=== PATIENT | male | born 1975 | race Caucasian/White ===

== ENCOUNTER 2016-12-19 04:28 | Inpatient (IN) | payer OTHER ==
[2016-12-19] MEDS ORDERED: ONDANSETRON 4 MG/2 ML VIAL IVP ONE (04:43)
[2016-12-19] MEDS ORDERED: NS 1,000 ML IV ONE ×2 (04:43→05:14)
--- NOTE | 2016-12-19 04:44 | EDPHY ---
H & P Stated Complaint: N/V abdo pain X 12 hours Time Seen by Provider: 12/19/16 04:35 HPI/ROS: Chief Complaint: Abdominal pain, nausea and vomiting HPI: Patient began having centralized abdominal pain which has been crampy and intermittent in nature for the last 12 hours associated with nausea and vomiting. He is not able to keep anything down. No diarrhea. Has not had any bowel movements and feels he might be constipated. Does not have a history of the same. At worst pain is about a 7/10. There are no aggravating or alleviating factors. No fevers or chills. Has not have a history of the same. No surgeries in the past. ROS: 10 point Review of Systems is negative except as noted in the HPI. PMH: None Medications: None Allergies: No known drug allergies Social History: No smoking, occasional alcohol, no recreational drug use Family History: non-contributory Physical Exam: Gen: Awake, Alert, uncomfortable appearing HEENT: Nose: no rhinorrhea Eyes: PERRLA, EOMI Mouth: Moist mucosa Neck: Supple, no JVD Chest: nontender, lungs clear to auscultation Heart: S1, S2 normal, no murmur Abd: Soft, left-sided abdominal tenderness, no guarding Back: no CVA tenderness, no midline tenderness Ext: no edema, non-tender Skin: no rash Neuro: CN II-XII intact, Sensation grossly intact, Strength 5/5 in bilateral upper and lower extremities - Personal History Current Tetanus/Diphtheria Vaccine: Yes Current Tetanus Diphtheria and Acellular Pertussis (TDAP): Yes - Medical/Surgical History Hx Asthma: No Hx Chronic Respiratory Disease: No Hx Diabetes: No Hx Cardiac Disease: No Hx Renal Disease: No Hx Cirrhosis: No Hx Alcoholism: Yes Hx HIV/AIDS: No Hx Splenectomy or Spleen Trauma: No Other PMH: drinks "8 to 10 drinks per day". denies other - Social History Smoking Status: Never smoked Constitutional: Initial Vital Signs Temperature (C) 36.6 C 12/19/16 04:36 Heart Rate 84 12/19/16 04:36 Respiratory Rate 16 12/19/16 04:36 Blood Pressure 177/126 H 12/19/16 04:36 O2 Sat (%) 98 12/19/16 04:36 O2 Delivery Mode Room Air Allergies/Adverse Reactions: No Known Allergies Allergy (Unverified 12/19/16 04:35) Home Medications: Medication Instructions Recorded NK [No Known Home Meds] 02/21/14 Medical Decision Making - Diagnostics Imaging: CT scan abdomen pelvis interpreted by Dr. Mccauley. There is a high-grade small-bowel obstruction with the appearance of a possible internal hernia. ED Course/Re-evaluation: CT scan shows a high-grade small-bowel obstruction with a possible transient mental internal hernia. Will page General surgery is a select require surgical repair. Will place an NG tube. Discussed with Dr. Martinez. Will admit to his service for further care. - Data Points Laboratory Results: Laboratory Results 12/19/16 04:45 12/19/16 04:45 12/19/16 12/19/16 04:45 04:45 WBC 11.49 10^3/uL H 10^3/uL (3.80-9.50) RBC 4.70 10^6/uL 10^6/uL (4.40-6.38) Hgb 9.5 g/dL L g/dL (13.7-17.5) Hct 31.1 % L % (40.0-51.0) MCV 66.2 fL L fL (81.5-99.8) MCH 20.2 pg L pg (27.9-34.1) MCHC 30.5 g/dL L g/dL (32.4-36.7) RDW 18.1 % H % (11.5-15.2) Plt Count 330 10^3/uL 10^3/uL (150-400) MPV 9.9 fL fL (8.7-11.7) Neut % (Auto) 87.1 % H % (39.3-74.2) Lymph % (Auto) 8.5 % L % (15.0-45.0) [place] % (Auto) 3.7 % L % (4.5-13.0) Eos % (Auto) 0.0 % L % (0.6-7.6) Baso % (Auto) 0.3 % % (0.3-1.7) Nucleat RBC Rel Count 0.0 % % (0.0-0.2) Absolute Neuts (auto) 9.99 10^3/uL H 10^3/uL (1.70-6.50) Absolute Lymphs (auto) 0.98 10^3/uL L 10^3/uL (1.00-3.00) Absolute Monos (auto) 0.43 10^3/uL 10^3/uL (0.30-0.80) Absolute Eos (auto) 0.00 10^3/uL L 10^3/uL (0.03-0.40) Absolute Basos (auto) 0.04 10^3/uL 10^3/uL (0.02-0.10) Absolute Nucleated RBC 0.00 10^3/uL 10^3/uL (0-0.01) Immature Gran % 0.4 % % (0.0-1.1) Immature Gran # 0.05 10^3/uL 10^3/uL (0.00-0.10) Platelet Estimate ADEQUATE (ADEQ) Polychromasia 1+ H Hypochromasia 2+ H Microcytic Cells 1+ H Smear Review By Pending Sodium 133 mEq/L L mEq/L (134-144) Potassium 3.4 mEq/L L mEq/L (3.5-5.2) Chloride 94 mEq/L L mEq/L (97-110) Carbon Dioxide 20 mEq/l L mEq/l (22-31) Anion Gap 19 mEq/L H mEq/L (8-16) BUN 8 mg/dL mg/dL (7-23) Creatinine 0.7 mg/dL mg/dL (0.7-1.3) Estimated GFR > 60 Glucose 113 mg/dL H mg/dL (70-100) Calcium 9.6 mg/dL mg/dL (8.5-10.4) Total Bilirubin 1.0 mg/dL mg/dL (0.1-1.4) Conjugated Bilirubin 0.3 mg/dL mg/dL (0.0-0.5) Unconjugated Bilirubin 0.7 mg/dL mg/dL (0.0-1.1) AST 34 IU/L IU/L (17-59) ALT 30 IU/L IU/L (21-72) Alkaline Phosphatase 90 IU/L IU/L (38-126) Total Protein 8.4 g/dL H g/dL (6.3-8.2) Albumin 5.2 g/dL H g/dL (3.5-5.0) Lipase 47.0 IU/L IU/L (23-300) Medications Given: Discontinued Medications Hydromorphone HCl (Dilaudid) 0.5 mg IVP EDNOW ONE Stop: 12/19/16 05:10 Last Admin: 12/19/16 05:11 Dose: 0.5 mg Sodium Chloride (Ns) 1,000 mls @ 0 mls/hr IV ONCE ONE PRN Reason: Wide Open Stop: 12/19/16 04:44 Last Admin: 12/19/16 04:53 Dose: 1,000 mls Morphine Sulfate (Morphine) 4 mg IVP ONCE ONE Stop: 12/19/16 04:44 Last Admin: 12/19/16 04:53 Dose: 4 mg Ondansetron HCl (Zofran) 4 mg IVP EDNOW ONE Stop: 12/19/16 04:44 Last Admin: 12/19/16 04:53 Dose: 4 mg Departure - Departure Disposition: [facility] Inpatient Acute Clinical Impression: Small bowel obstruction Condition: Fair Referrals: NONE *PRIMARY CARE P,. [Primary Care Provider] - As per Instructions
[2016-12-19 04:56] LABS: % IMMATURE GRANULYOCYTES 0.4 % (0.0-1.1); ABSOLUTE IMMATURE GRANULOCYTES 0.05 10^3/uL (0.00-0.10); ADD DIFF? NO; ADD MORPH? YES; ADD SCAN? NO; ATYPICAL LYMPHOCYTE FLAG 0 (0-99); FRAGMENT RBC FLAG 20 (0-99); HEMATOCRIT 31.1 % (40.0-51.0); HEMOGLOBIN 9.5 g/dL (13.7-17.5); LEFT SHIFT FLG 0 (0-99); LIPEMIA HEMOLYSIS FLAG 80 (0-99); MEAN CELL HEMOGLOBIN 20.2 pg (27.9-34.1); MEAN CELL HEMOGLOBIN CONCENTR. 30.5 g/dL (32.4-36.7); MEAN PLATELET VOLUME 9.9 fL (8.7-11.7); PLATELET CLUMPS FLAG 0 (0-99); PLATELET COUNT 330 10^3/uL (150-400); RED CELL DISTRIBUTION WIDTH 18.1 % (11.5-15.2)
[2016-12-19 04:57] LABS: MEAN CELL VOLUME 66.2 fL (81.5-99.8)
[2016-12-19] MEDS ORDERED: HYDROmorphONE/DILAUDID 1 MG/ML SYR ONE (05:05)
[2016-12-19 05:09] LABS: ALANINE AMINOTRANSFERASE 30 IU/L (21-72); ALBUMIN 5.2 g/dL (3.5-5.0); ALKALINE PHOSPHATASE 90 IU/L (38-126); ANION GAP 19 mEq/L (8-16); ASPARTATE AMINOTRANSFERASE 34 IU/L (17-59); BILIRUBIN-CONJUGATED 0.3 mg/dL (0.0-0.5); BILIRUBIN-UNCONJUGATED 0.7 mg/dL (0.0-1.1); CALCIUM 9.6 mg/dL (8.5-10.4); CARBON DIOXIDE 20 mEq/l (22-31); CHLORIDE 94 mEq/L (97-110); CREATININE 0.7 mg/dL (0.7-1.3); GLOMERULAR FILTRATION RATE > 60; GLUCOSE 113 mg/dL (70-100); POTASSIUM 3.4 mEq/L (3.5-5.2); SODIUM 133 mEq/L (134-144); TOTAL PROTEIN 8.4 g/dL (6.3-8.2)
[2016-12-19] MEDS ORDERED: HYDROmorphONE/DILAUDID 1 MG/ML SYR IVP ONE (05:09)
[2016-12-19] MEDS ORDERED: IOPAMIDOL (ISOVUE-300) 100 ML BTL IV ONE (05:16)
[2016-12-19 05:25] LABS: HYPOCHROMIA 2+
[2016-12-19 05:26] LABS: MICROCYTES 1+; PLATELET ESTIMATE ADEQUATE (ADEQ); POLYCHROMASIA 1+
[2016-12-19] MEDS ORDERED: LIDOCAINE 2% JELLY 5 ML TUBE ONE (05:47)
[2016-12-19] MEDS ORDERED: LORazepam 2 MG/ML INJ IVP ONE (06:28)
[2016-12-19] MEDS ORDERED: LABETALOL HCL 50 MG/10 ML SYR IVP ONE (06:48)
[2016-12-19] MEDS ORDERED: LABETALOL HCL 5 MG/ML 20 ML MDV ONE (06:51)
[2016-12-19] MEDS ORDERED: ENALAPRILAT DIHYDRATE 1.25 MG/ML VIAL IVP PRN (06:54)
--- NOTE | 2016-12-19 06:54 | SOAPPROG ---
SOAP Progress Note Assessment/Plan: Assessment: 41 male with sbo for unclear reason/ risks and options fully discussed also htn Plan:ng/ ivs/ npo/ possible surgery/ IM consult 12/19/16 06:52 Objective: Vital Signs Temp Pulse Resp BP Pulse Ox 36.7 C 87 18 173/121 H 96 12/19/16 06:36 12/19/16 06:36 12/19/16 06:36 12/19/16 06:36 12/19/16 06:39 12/18/16 12/19/16 12/20/16 05:59 05:59 05:59 Intake Total 1100 Output Total 450 Balance 650 ICD10 Worksheet Patient Problems: Problems Problem Status Onset Small bowel obstruction Acute
--- NOTE | 2016-12-19 06:54 | PDHOSCONS ---
Hospitalist Consult Hospitalist Consult: Reason for consult: hypertension Consulting service: general surgery HPI: Patient is a 41/M with no known past medical history who presents to the ED with complaint of abdominal pain, distention and vomiting. Patient states his symptoms started yesterday afternoon with intermittent cramping abdominal pain. The pain was diffuse in nature, associated with sensation of increased bloating. By the evening also developed nausea and when trying to fall asleep, he began vomiting several times (nonbloody, nonbilious). He was unable to maintain any oral intake without vomiting. reports his last BM was yesterday morning. He has never experienced these symptoms previously. Reports some chills when vomiting, but denies any fever, headache, chest pain, palpitations, cough, congestion or shortness of breath. Of note, patient reports drinking about 6-8 beers nightly for many years. He denies any knowledge of withdrawal symptoms, but states he has not really stopped drinking anytime long enough for withdrawal to occur in his recent memory. He reports a bland diet usually. Denies any history of significant constipation (usually has a daily BM), also denies previous abdominal surgeries. Longitudinal PMH: PMH: denies PSH: denies Allergies: NKDA SH: Denies history of tobacco use, denies recreation drug use; drinks alcohol daily (beer, 6-8). Works in [employer]. FH: M: cancer (unknown type), PE: VS: T 36.7C BP 173/121 HR 87 RR 18 O2 Sat 99% on 2L Gen: NAD, not in pain HEENT: NG tube in place draining fluid; EOMI; PERRL Neck: supple, no LAD CV: RRR, no murmurs Resp: CTA bilaterally; no crackles or wheezing Abd: hypoactive bowel sounds, mildly distended, but soft; mild tenderness diffusely; no guarding Ext: no LE edema; DP pulses 2+ and equal bilaterally Neuro: AO x 3, answers questions, follows commands appropriately; CN II-XII grossly intact; strength 5/5 in all extremities Labs: CBC: 11.49 > 9.5 / 31.1 < 330 MCV: 66 BMP: 133 / 3.4 / 94 / 20 / 8 / 0.7 < 113 LFTs: TP 8.4 Alb 5.2 TB 1 DB 0.7 AST 34 ALT 30 ALP 90 Lipase: 47 Imaging: CT abd/pelvis: high grade small bowel obstruction with possible internal hernia Impression/Plan: Patient is a 41 year old male with daily, chronic alcohol use who presents to the ED with abdominal pain, vomiting and bloating. ED evaluation reveals high grade small bowel obstruction. Patient also noted to be significantly hypertensive, despite adequate pain control, for which the hospitalist service is consulted. # hypertension Presenting hypertension is likely multifactorial, related to acute pain from presenting symptoms, anxiety, possible acute alcohol withdrawal and possible chronic undiagnosed hypertension. Given NPO status without PO meds, will treat with IV meds until SBO improves. - control pain - treat withdrawal symptoms as they present - give labetalol 10 mg ivp now, can consider initiating continuous drip - check EKG to assess for signs of longstanding hypertension # microcytic anemia Given patient's history of chronic alcohol use, would expect a macrocytic anemia , however, patient is moderately anemic with a microcytic morphology. Given presentation with GI obstruction, there is a concern for occult GI bleeding; patient denies any obvious melena or brbpr. Will continue to trend CBC, initiate famotidine and consider GI evaluation when SBO improves/resolves. # electrolyte abnormalities Patient hypokalemic and hyponatremic on presentation. Hyponatremia likely related to recent nausea, vomiting, as well as self-described bland diet with significant alcohol use. Will continue to monitor with IVF hydration and repletion of potassium. # chronic ETOH use, early ETOH withdrawal Patient does not appear to be acutely withdrawing on my exam, however is at risk given magnitude of his daily ETOH intake. Will place on CIWA protocol with ativan coverage as needed. Will also supplement thiamine, folate, multivitamin. # acute small bowel obstruction CT findings concerning for high grade stenosis. Will defer management to general surgery. # dispo: hospitalist service will continue to consult # full code
[2016-12-19] MEDS ORDERED: D5W 1/2 NS W/ 20 KCl/L 1,000 ML IV SCH (07:00)
[2016-12-19] MEDS ORDERED: LORazepam 2 MG/ML INJ IVP PRN (07:16)
[2016-12-19] MEDS: FAMOTIDINE 20 MG/NACL 50 ML IV SCH ×2 (08:48→20:46)
--- NOTE | 2016-12-19 08:56 | CPEKG ---
Heart Rate: 82 RR Interval: 732 P-R Interval: 176 QRSD Interval: 102 QT Interval: 408 QTC Interval: 477 P Sinking Spring: 49 QRS Sinking Spring: -29 T Wave Sinking Spring: 15 EKG Severity - BORDERLINE ECG - EKG Impression: SINUS RHYTHM EKG Impression: BORDERLINE LEFT AXIS DEVIATION EKG Impression: BORDERLINE PROLONGED QT INTERVAL Electronically Signed By: Justin Barron 23-Dec-2016 10:30:31
[2016-12-19] MEDS ORDERED: BUPIVACAINE 0.5% 30 ML SDV ONE (11:53)
[2016-12-19] MEDS ORDERED: ceFAZolin 1 GM/5 ML SYR ONE (11:54)
[2016-12-19] MEDS ORDERED: HEPARIN 1000 UNIT/1 ML MDV ONE (11:54)
[2016-12-19] MEDS: THIAMINE HCL 500 MG in NS 100 ML IV SCH (15:31)
--- NOTE | 2016-12-19 16:18 | GHP ---
[f rep st] PREOP HISTORY AND PHYSICAL DATE OF ADMISSION: 12/19/2016 HISTORY OF PRESENT ILLNESS: Patient is a 41-year-old male who presents with sudden onset of a small bowel obstruction with some emesis, slight distention and abdominal cramps. He had a normal bowel m ovement yesterday. He is admitted at this time for NG suction, evaluation, and possible need for sabrina raven. PAST MEDICAL HISTORY: Negative for hospitalizations or surgeries. MEDICATIONS: None. ALLERGIES: None. REVIEW OF SYSTEMS: No other major medical problems except that he does drink 8-10 drinks a night. H e does not smoke. PHYSICAL EXAMINATION: GENERAL: An alert 41-year-old male, in no acute distress. HEAD AND NECK: Alexi gn without icterus or adenopathy. CHEST: Clear. CARDIAC: Regular rhythm. ABDOMEN: Soft, nontender. H e is slightly distended. There is no guarding although he has had pain medicine. He has positive bow el sounds. EXTREMITIES: Benign. Full pulses. NEUROLOGIC: Intact. IMPRESSION: Small bowel obstruction of uncertain etiology with no hernias, no history of laparotomy . PLAN: Admit for NG, IVs and observation, possible surgery. Risks and options have been fully discus sed with the patient, and he wishes to proceed. /[id number]/MODL
--- NOTE | 2016-12-19 17:01 | HOSPPROG ---
Hospitalist Progress Note Assessment/Plan: 41-year-old male admitted today to surgery with medicine consultation. He is admitted with a small-bowel obstruction of unclear etiology and has been placed on NG suction. Current medical problems are as follows -acute small bowel obstruction of undetermined etiology perhaps secondary to a volvulus or bowel herniation. He is on NG suction reports he feels improved. Repeat abdominal film shows persistence of a small-bowel obstruction. -acute anemia microcytic and hypochromic. The presence of this anemia would suggest a more chronic problem which may be related to his bowel obstruction. At this time his hemoglobin is 7.9, he slightly tachycardic and hypertensive. Medically he does not at this time require PRBCs. Preoperatively he may improve with 1 unit of packed red blood cells. -electrolyte disorder of hyponatremia and hypokalemia. 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 He has done this for approximately the last 10 years and reports though he is never stopped drinking alcohol he has never had tremors or withdrawal symptoms. He is currently 24-36 hours without his last use of alcohol and has no signs of withdrawal. Will continue on on a CIWA protocol. It is also possible the anemia relates to his use of alcohol and he will replaced on thiamine and folate. Iron studies will be ordered relative to his anemia. Plan: Will follow along with surgery regarding their plans for surgery. We will follow along with you. I have ordered the packed red blood cells in presumption that we will be doing surgery for relief of his small-bowel obstruction Subjective: Reports he feels improved since the placement of the NG tube. No nausea vomiting chest pain shortness of breath or headache. Objective: Vital Signs Temp Pulse Resp BP Pulse Ox 36.6 C 79 16 171/116 H 97 12/19/16 15:34 12/19/16 15:34 12/19/16 15:34 12/19/16 15:34 12/19/16 15:34 12/18/16 12/19/16 12/20/16 05:59 05:59 05:59 Intake Total 1100 Output Total 450 Balance 650 - Time Spent With Patient Time Spent with Patient: greater than 35 minutes Time Spent with Patient: Greater than 35 minutes spent on this patients care, greater than 50% of time spent counseling, educating, and coordinating care regarding the above mentioned plan. - Pending Discharge Pending Discharge Within 24 Hours: No Pending Discharge Within 48 Hours: No - Physical Exam Constitutional: no apparent distress, other (Acutely ill in appearance) Eyes: PERRL, anicteric sclera Ears, Nose, Mouth, Throat: moist mucous membranes Cardiovascular: regular rate and rhythym, no murmur, rub, or gallop, tachycardia Respiratory: no respiratory distress, no rales or rhonchi, clear to auscultation Gastrointestinal: other (Absent bowel sounds with distention and tenderness on deep palpation without a palpable or pulsatile) Genitourinary: no bladder fullness Skin: warm Musculoskeletal: full muscle strength Neurologic: AAOx3, CN II-XII Intact Psychiatric: interacting appropriately ICD10 Worksheet Patient Problems: Problems Problem Status Onset Small bowel obstruction Acute
[2016-12-19] MEDS ORDERED: PROTOCOL POTASSIUM 1 DOSE MISC PRN (17:02)
[2016-12-19] MEDS ORDERED: PROTOCOL MAGNESIUM 1 DOSE IV PRN (17:02)
[2016-12-19] MEDS ORDERED: morphINE PCA 30 MG/30 ML PCA IV PRN (18:34)
[2016-12-19] MEDS ORDERED: NALOXONE HCL 0.4 MG/ML INJ IVP PRN (18:34)
[2016-12-19 20:03] LABS: MAGNESIUM 1.7 mg/dL (1.6-2.3); POTASSIUM 4.4 mEq/L (3.5-5.2)
[2016-12-19] MEDS ORDERED: morphINE *ANESTHESIA ONLY* 10 MG/ML VIAL ONE (23:16)
[2016-12-19] MEDS ORDERED: PROPOFOL/EMULSION 500 MG/50 ML BOTTLE IV ONE (23:16)
[2016-12-19] MEDS ORDERED: LIDOCAINE 2% 5 ML SDV ONE (23:18)
[2016-12-19] MEDS ORDERED: DEXAMETHASONE 4 MG/ML VIAL ONE (23:18)
[2016-12-19] MEDS ORDERED: ROCURONIUM 50 MG/5 ML VIAL ONE (23:18)
[2016-12-19] MEDS ORDERED: ERTAPENEM 1 GM in NS 100 ML IV ONE (23:30)
[2016-12-20] MEDS ORDERED: KETOROLAC 30 MG/1 ML SDV ONE
--- NOTE | 2016-12-20 00:25 | POSTOPPROG ---
Post Op Note Date of Operation: 12/20/16 Surgeon: Pepe Martinez Anesthesiologist: SEE Anesthesia: GET(General Endotracheal) Pre-op Diagnosis: SBO Post-op Diagnosis: SAME Indication: PAIN Procedure: LAPAROSCOPY/ LAPAROTOMY AND LYSIS ADHESIONS Findings: SINGLE BAND/ VIABLE BOWELL Inf/Abcess present in the surg proc area at time of surgery?: Yes Depth: Organ Space EBL: Minimal Complications: 0
--- NOTE | 2016-12-20 00:29 | SOAPPROG ---
SOAP Progress Note Assessment/Plan: Assessment: 41 male with sbo for unclear reason/ risks and options fully discussed also htn Plan:ng/ ivs/ npo/ possible surgery/ IM consult 12/19/16 06:52 12/20/16 00:28 HAVING PERSISTANT PAIN REQUIRING LOTS OF NARCOTICS Objective: Vital Signs Temp Pulse Resp BP Pulse Ox 36.4 C 89 18 156/108 H 97 12/19/16 20:00 12/19/16 20:00 12/19/16 20:00 12/19/16 20:00 12/19/16 20:00 Laboratory Results 12/19/16 19:15 12/18/16 12/19/16 12/20/16 05:59 05:59 05:59 Intake Total 1100 Output Total 850 Balance 250 ICD10 Worksheet Patient Problems: Problems Problem Status Onset Small bowel obstruction Acute
--- NOTE | 2016-12-20 00:31 | SOAPPROG ---
SOAP Progress Note Assessment/Plan: Assessment: 41 male with sbo for unclear reason/ risks and options fully discussed also htn Plan:ng/ ivs/ npo/ possible surgery/ IM consult 12/19/16 06:52 12/20/16 00:28 HAVING PERSISTANT PAIN REQUIRING LOTS OF NARCOTICS 12/20/16 00:30 STILL HAVING LOTS OF PAIN REQUIRING NARCOTICS/ RISKS AND OPTIONS FULLY DISCUSSED/ PLAN SURGERY TONITE( DISCUSSED AT 8 PM) Objective: Vital Signs Temp Pulse Resp BP Pulse Ox 36.4 C 89 18 156/108 H 97 12/19/16 20:00 12/19/16 20:00 12/19/16 20:00 12/19/16 20:00 12/19/16 20:00 Laboratory Results 12/19/16 19:15 12/18/16 12/19/16 12/20/16 05:59 05:59 05:59 Intake Total 1100 Output Total 850 Balance 250 ICD10 Worksheet Patient Problems: Problems Problem Status Onset Small bowel obstruction Acute
--- NOTE | 2016-12-20 04:24 | GOP ---
[f rep st] OPERATIVE REPORT DATE OF OPERATION: 12/19/2016 SURGEON: Pepe Martinez MD PREOPERATIVE DIAGNOSIS: Small-bowel obstruction. POSTOPERATIVE DIAGNOSIS: Small-bowel obstruction. PROCEDURE PERFORMED: Laparoscopy and laparotomy with lysis of adhesions. FINDINGS: Patient was found to have viable bowel but a single fibrous band probably related to dive rticulitis in the left lower quadrant. The bowel pinked up. It was quite viable after release. DESCRIPTION OF PROCEDURE: The patient was taken to the operating room, received satisfactory genera l endotracheal anesthesia by Dr. Carr. Placed in supine position, prepped and draped in the [facility] sterile fashion. A periumbilical incision was made. A Veress needle inserted. Pneumoperitoneum was established. Trocar was introduced. Laparoscope introduced. Good visualization was obtained. There was a large amount of cloudy greenish fluid in the abdomen and inflammation over some of the small bowel. Because of the gross colored fluid we converted to a laparotomy with a midline periumb ilical incision. The abdomen was explored. The small bowel was eviscerated with division of a smal l band at the point of obstruction. The dusky entrapped bowel was markedly improved after release a nd pinked up quite readily. Wound was copiously irrigated. All discolored fluid was suctioned ginger r. The bowel was returned to the abdomen. The wound was closed with a running #1 PDS suture for th e linea alba. A 3-0 Vicryl for the subcu, and 3-0 Monoderm Quill suture for the skin. The wound wa s infiltrated with 0.5% Marcaine. He tolerated the procedure well and was taken to the recovery [facility] in good condition. No complications. Blood loss negligible. Anesthesia was Dr. Montiel. /[id number]/MODL
[2016-12-20] MEDS: NS W/ 20 KCl/L 1,000 ML IV SCH ×2 (04:38→21:29)
[2016-12-20 05:37] LABS: MAGNESIUM 1.8 mg/dL (1.6-2.3); POTASSIUM 4.6 mEq/L (3.5-5.2)
[2016-12-20] MEDS ORDERED: MAGNESIUM SULF 1 GM/DEXTROSE 100 ML IV ONE (07:46)
[2016-12-20] MEDS: THIAMINE HCL 500 MG in NS 100 ML IV SCH (08:38)
[2016-12-20] MEDS: FAMOTIDINE 20 MG/NACL 50 ML IV SCH ×2 (08:38→21:28)
--- NOTE | 2016-12-20 09:45 | SOAPPROG ---
SOAP Progress Note Assessment/Plan: Assessment: s/p laparotomy with MANOLO for single adhesive band Minimal NG output after surgery No nausea No flatus DC NG Sips and chips S: No flatus, feeling much improved Plan: 12/20/16 09:45 Objective: Vital Signs Temp Pulse Resp BP Pulse Ox 36.5 C 74 16 107/67 95 12/20/16 08:00 12/20/16 08:00 12/20/16 08:00 12/20/16 08:00 12/20/16 08:00 12/19/16 12/20/16 12/21/16 05:59 05:59 05:59 Intake Total 3263 Output Total 2650 Balance 613 Physical Exam - Physical Exam General Appearance: WD/WN, alert, no apparent distress EENT: PERRL/EOMI, normal ENT inspection Respiratory: lungs clear, normal breath sounds Cardiac/Chest: regular rate, rhythm Abdomen: normal bowel sounds, non-tender, soft, other (dressing with slight stain) ICD10 Worksheet Patient Problems: Problems Problem Status Onset Small bowel obstruction Acute
[2016-12-20 09:53] LABS: % IMMATURE GRANULYOCYTES 0.2 % (0.0-1.1); ABSOLUTE IMMATURE GRANULOCYTES 0.01 10^3/uL (0.00-0.10); ADD DIFF? NO; ADD MORPH? YES; ADD SCAN? NO; ATYPICAL LYMPHOCYTE FLAG 0 (0-99); FRAGMENT RBC FLAG 20 (0-99); HEMOGLOBIN 8.1 g/dL (13.7-17.5); LEFT SHIFT FLG 0 (0-99); LIPEMIA HEMOLYSIS FLAG 80 (0-99); MEAN CELL HEMOGLOBIN 20.7 pg (27.9-34.1); MEAN PLATELET VOLUME 10.5 fL (8.7-11.7); PLATELET CLUMPS FLAG 30 (0-99); PLATELET COUNT 253 10^3/uL (150-400); RED BLOOD CELL COUNT 3.92 10^6/uL (4.40-6.38); RED CELL DISTRIBUTION WIDTH 18.5 % (11.5-15.2)
[2016-12-20 09:55] LABS: MEAN CELL VOLUME 68.9 fL (81.5-99.8)
[2016-12-20 09:58] LABS: ANION GAP 6 mEq/L (8-16); CALCIUM 7.9 mg/dL (8.5-10.4); CARBON DIOXIDE 23 mEq/l (22-31); CHLORIDE 105 mEq/L (97-110); CREATININE 0.7 mg/dL (0.7-1.3); GLOMERULAR FILTRATION RATE > 60; GLUCOSE 115 mg/dL (70-100); POTASSIUM 4.5 mEq/L (3.5-5.2); SODIUM 134 mEq/L (134-144)
[2016-12-20 10:15] LABS: MICROCYTES 2+; PLATELET ESTIMATE ADEQUATE (ADEQ); POLYCHROMASIA 2+; STOMATOCYTES 1+
--- NOTE | 2016-12-20 15:27 | HOSPPROG ---
Hospitalist Progress Note Assessment/Plan: 41-year-old male admitted today to surgery with medicine consultation. He is admitted with a small-bowel obstruction of unclear etiology and has been placed on NG suction. Patient is now status post open decompression. This is postop day 1. -postop day 1. Lysis of of a single adhesion in the left lower quadrant probably secondary to diverticulitis. No bowel resection was performed. Patient is currently doing well. He has some active bowel sounds and has not moved gas yet. -acute anemia microcytic and hypochromic. The presence of this anemia would suggest a more chronic problem which may be related to his bowel obstruction. At this time his hemoglobin is 7.9, he slightly tachycardic and hypertensive. Anemia is persistent and and iron studies will be performed. -electrolyte disorder of hyponatremia and hypokalemia. 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 He has done this for approximately the last 10 years and reports though he is never stopped drinking alcohol he has never had tremors or withdrawal symptoms. He is currently 24-36 hours without his last use of alcohol and has no signs of withdrawal. Will continue on on a CIWA protocol. It is also possible the anemia relates to his use of alcohol and he will replaced on thiamine and folate. Iron studies will be ordered relative to his anemia. Plan: Continue postop surgical care, evaluation of anemia and watch for withdrawal symptoms. Subjective: Reports he is feeling much improved no chest pain shortness of breath. S below. Objective: Vital Signs Temp Pulse Resp BP Pulse Ox 36.8 C 80 14 118/75 92 12/20/16 12:00 12/20/16 12:00 12/20/16 12:00 12/20/16 12:00 12/20/16 12:00 Laboratory Results 12/20/16 08:55 12/20/16 08:55 12/19/16 12/20/16 12/21/16 05:59 05:59 05:59 Intake Total 3263 Output Total 5100 700 Balance 613 -700 - Time Spent With Patient Time Spent with Patient: greater than 35 minutes Time Spent with Patient: Greater than 35 minutes spent on this patients care, greater than 50% of time spent counseling, educating, and coordinating care regarding the above mentioned plan. - Pending Discharge Pending Discharge Within 24 Hours: No Pending Discharge Within 48 Hours: No - Physical Exam Constitutional: no apparent distress Eyes: PERRL, anicteric sclera Ears, Nose, Mouth, Throat: moist mucous membranes Cardiovascular: regular rate and rhythym, no murmur, rub, or gallop Respiratory: no respiratory distress, no rales or rhonchi, clear to auscultation Gastrointestinal: other (Hypoactive bowel sounds. There is overall tenderness without palpable mass or repeat it) Genitourinary: no bladder fullness Skin: warm Neurologic: AAOx3, CN II-XII Intact Psychiatric: interacting appropriately ICD10 Worksheet Patient Problems: Problems Problem Status Onset Small bowel obstruction Acute
[2016-12-21] MEDS: NS W/ 20 KCl/L 1,000 ML IV SCH ×2 (05:02→14:50)
[2016-12-21 05:54] LABS: TOTAL IRON BINDING CAPACITY 416 ug/dL (260-490)
[2016-12-21 05:58] LABS: % SATURATION 2 % (20-55); IRON < 10.1 mcg/dL (49-199)
[2016-12-21] MEDS: FAMOTIDINE 20 MG/NACL 50 ML IV SCH ×2 (08:48→22:16)
--- NOTE | 2016-12-21 10:34 | SOAPPROG ---
SOAP Progress Note Assessment/Plan: Assessment: s/p laparotomy with MANOLO for single adhesive band No nausea No flatus DC NG Sips and chips S: No flatus, some distension Plan: 12/20/16 09:45 12/21/16 10:33 Objective: Vital Signs Temp Pulse Resp BP Pulse Ox 36.7 C 81 14 149/109 H 95 12/21/16 08:00 12/21/16 08:00 12/21/16 08:00 12/21/16 08:50 12/21/16 08:00 Laboratory Results 12/20/16 08:55 12/20/16 08:55 12/20/16 12/21/16 12/22/16 05:59 05:59 05:59 Intake Total 3263 1500 Output Total 2650 1700 Balance 613 -200 Physical Exam - Physical Exam General Appearance: WD/WN, alert, no apparent distress EENT: normal ENT inspection Respiratory: lungs clear Cardiac/Chest: regular rate, rhythm Abdomen: soft, distended, other (incision cdi. Hypoactive bowel sounds) ICD10 Worksheet Patient Problems: Problems Problem Status Onset Small bowel obstruction Acute
--- NOTE | 2016-12-21 16:06 | HOSPPROG ---
Hospitalist Progress Note Assessment/Plan: 41-year-old male admitted today to surgery with medicine consultation. He is admitted with a small-bowel obstruction of unclear etiology and has been placed on NG suction. Patient is now status post open decompression. This is postop day 1. -postop day 1. Lysis of of a single adhesion in the left lower quadrant probably secondary to diverticulitis. No bowel resection was performed. Patient is currently doing well. He has some active bowel sounds and has not moved gas yet. Today surgery placed on sips and chips -iron deficiency anemia: The presence of this anemia would suggest a more chronic problem which may be related to his bowel obstruction. At this time his hemoglobin is 7.9, he slightly tachycardic and hypertensive. Iron studies showed low iron with normal saturation. Iron will be repleted IV while in- house and p.o. as an outpatient. -electrolyte disorder of hyponatremia and hypokalemia. 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 He has done this for approximately the last 10 years and reports though he is never stopped drinking alcohol he has never had tremors or withdrawal symptoms. He is currently 24-36 hours without his last use of alcohol and has no signs of withdrawal. Will continue on on a CIWA protocol. It is also possible the anemia relates to his use of alcohol and he will replaced on thiamine and folate. Iron studies will be ordered relative to his anemia. Plan: Continue postop surgical care, evaluation of anemia and watch for withdrawal symptoms. Subjective: Reports he is feeling improved abdominal pain is much improved Objective: Vital Signs Temp Pulse Resp BP Pulse Ox 36.8 C 78 13 158/114 H 99 12/21/16 14:00 12/21/16 14:00 12/21/16 14:00 12/21/16 14:50 12/21/16 14:00 Laboratory Results 12/20/16 08:55 12/20/16 08:55 12/20/16 12/21/16 12/22/16 05:59 05:59 05:59 Intake Total 3263 1500 Output Total 2650 1700 Balance 613 -200 - Time Spent With Patient Time Spent with Patient: greater than 35 minutes Time Spent with Patient: Greater than 35 minutes spent on this patients care, greater than 50% of time spent counseling, educating, and coordinating care regarding the above mentioned plan. - Pending Discharge Pending Discharge Within 24 Hours: No Pending Discharge Within 48 Hours: Yes Pending Discharge Date: 12/23/16 Pending Discharge Time: 11:00 - Physical Exam Constitutional: no apparent distress Eyes: PERRL Ears, Nose, Mouth, Throat: moist mucous membranes Cardiovascular: regular rate and rhythym, no murmur, rub, or gallop Respiratory: no respiratory distress, no rales or rhonchi Gastrointestinal: distension, other (Hypoactive bowel sounds an overall tenderness without rebound. Surgical wound is healing well) Musculoskeletal: full muscle strength Neurologic: AAOx3, CN II-XII Intact Psychiatric: interacting appropriately ICD10 Worksheet Patient Problems: Problems Problem Status Onset Small bowel obstruction Acute
[2016-12-21] MEDS: SODIUM FERRIC GLUCONAT/SUCROSE 125 MG in NS 100 ML IV SCH (17:14)
[2016-12-22 06:17] LABS: HEMOGLOBIN 9.1 g/dL (13.7-17.5); MEAN CELL HEMOGLOBIN 20.4 pg (27.9-34.1); RED BLOOD CELL COUNT 4.47 10^6/uL (4.40-6.38)
[2016-12-22 06:18] LABS: ABSOLUTE IMMATURE GRANULOCYTES 0.07 10^3/uL (0.00-0.10); ADD DIFF? NO; ADD MORPH? YES; ADD SCAN? NO; ATYPICAL LYMPHOCYTE FLAG 20 (0-99); FRAGMENT RBC FLAG 20 (0-99); LEFT SHIFT FLG 0 (0-99); LIPEMIA HEMOLYSIS FLAG 70 (0-99); MEAN CELL HEMOGLOBIN CONCENTR. 29.4 g/dL (32.4-36.7); MEAN PLATELET VOLUME 9.4 fL (8.7-11.7); PLATELET CLUMPS FLAG 30 (0-99); PLATELET COUNT 272 10^3/uL (150-400); RED CELL DISTRIBUTION WIDTH 18.6 % (11.5-15.2)
[2016-12-22 06:20] LABS: MEAN CELL VOLUME 69.4 fL (81.5-99.8)
[2016-12-22 06:47] LABS: HYPOCHROMIA 2+; MICROCYTES 2+
[2016-12-22 06:48] LABS: POLYCHROMASIA 1+
[2016-12-22 06:49] LABS: PLATELET ESTIMATE ADEQUATE (ADEQ)
--- NOTE | 2016-12-22 08:13 | HOSPPROG ---
Hospitalist Progress Note Assessment/Plan: 41-year-old male admitted today to surgery with medicine consultation. POD #2, MANOLO, now having gas, no BM yet -postop day 2. Lysis of of a single adhesion in the left lower quadrant probably secondary to diverticulitis. No bowel resection was performed. Patient is currently doing well. He has some active bowel sounds and has not moved gas yet. No BM yet. Improving. Will advance diet -iron deficiency anemia: The presence of this anemia would suggest a more chronic problem which may be related to his bowel obstruction. At this time his hemoglobin is 7.9, he slightly tachycardic and hypertensive. Iron studies showed low iron with normal saturation. Iron will be repleted IV while in- house and p.o. as an outpatient. Will refer to GI in followup -electrolyte disorder of hyponatremia and hypokalemia. 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 He has done this for approximately the last 10 years and reports though he is never stopped drinking alcohol he has never had tremors or withdrawal symptoms. He is currently 24-36 hours without his last use of alcohol and has no signs of withdrawal. Will continue on on a CIWA protocol. It is also possible the anemia relates to his use of alcohol and he will replaced on thiamine and folate. Iron studies will be ordered relative to his anemia. 12/22: No signs of withdrawal Plan: Continue postop surgical care, evaluation of anemia and watch for withdrawal symptoms. Possible discharge 12/23 if able to eat. discharge on iron with GI and surgical followup Subjective: Feeling improved. No vomiting, No BM; He is moving gas. Objective: Vital Signs Temp Pulse Resp BP Pulse Ox 36.9 C 81 14 143/98 H 94 12/22/16 07:45 12/22/16 07:45 12/22/16 07:45 12/22/16 07:45 12/22/16 07:45 Laboratory Results 12/22/16 06:07 12/20/16 08:55 12/21/16 12/22/16 12/23/16 05:59 05:59 05:59 Intake Total 1500 2148 Output Total 1700 Balance -200 2148 Selected Entries 12/19/16 12/19/16 12/19/16 07:15 07:28 07:55 Blood Pressure 164/112 H 156/110 H 150/94 H 12/19/16 12/19/16 11:42 15:34 Blood Pressure 143/107 H 171/116 H Laboratory Tests 12/19/16 12/19/16 12/20/16 04:45 04:45 08:55 WBC 11.49 H 6.56 Hgb 9.5 L 8.1 L MCV 66.2 L MCH 20.2 L MCHC 30.5 L Sodium 133 L Potassium 3.4 L 12/22/16 06:07 WBC 6.82 Hgb 9.1 L MCV MCH MCHC Sodium Potassium Laboratory Tests 12/19/16 12/21/16 12/22/16 04:45 05:17 06:07 Hgb 9.5 L 9.1 L Hct 31.1 L 31.0 L MCV 69.4 L MCH 20.4 L MCHC 29.4 L Iron < 10.1 L TIBC 416 Iron Saturation 2 L - Time Spent With Patient Time Spent with Patient: greater than 35 minutes Time Spent with Patient: Greater than 35 minutes spent on this patients care, greater than 50% of time spent counseling, educating, and coordinating care regarding the above mentioned plan. - Pending Discharge Pending Discharge Within 24 Hours: No Pending Discharge Within 48 Hours: Yes Pending Discharge Date: 12/24/16 Pending Discharge Time: 11:00 - Physical Exam Constitutional: no apparent distress Ears, Nose, Mouth, Throat: moist mucous membranes, hearing normal Cardiovascular: regular rate and rhythym, no murmur, rub, or gallop Respiratory: no respiratory distress, no rales or rhonchi, clear to auscultation Gastrointestinal: normoactive bowel sounds, soft, non-tender abdomen, tenderness , other (midline wound healing well; slight drainage, no purulence) Genitourinary: no bladder fullness Skin: warm Musculoskeletal: full muscle strength Neurologic: AAOx3, CN II-XII Intact Psychiatric: interacting appropriately ICD10 Worksheet Patient Problems: Problems Problem Status Onset Small bowel obstruction Acute
[2016-12-22] MEDS: FAMOTIDINE 20 MG/NACL 50 ML IV SCH (08:36)
[2016-12-22] MEDS: NS W/ 20 KCl/L 1,000 ML IV SCH (08:37)
[2016-12-22] MEDS: SODIUM FERRIC GLUCONAT/SUCROSE 125 MG in NS 100 ML IV SCH (08:39)
--- NOTE | 2016-12-22 12:31 | SOAPPROG ---
SOAP Progress Note Assessment/Plan: Assessment: 41yo male s/p laparotomy, lysis of adhesions, possibly from previous diverticulitis episode. Microcytic anemia Tolerating clears, ambulating, pain controlled, passing gas PE awake alert comfortable Abdomen midline incision clean/dry, abdomen very soft to palpation Plan: regular diet possible D/C later today (if tolerates regular diet and ok with medicine) or in AM 12/22/16 12:29 Objective: Vital Signs Temp Pulse Resp BP Pulse Ox 37 C 68 14 186/120 H 98 12/22/16 11:36 12/22/16 11:36 12/22/16 11:36 12/22/16 11:36 12/22/16 11:36 Laboratory Results 12/22/16 06:07 12/20/16 08:55 12/21/16 12/22/16 12/23/16 05:59 05:59 05:59 Intake Total 1500 2148 Output Total 1700 Balance -200 2148 ICD10 Worksheet Patient Problems: Problems Problem Status Onset Small bowel obstruction Acute
[2016-12-22] MEDS ORDERED: HYDROCODONE/APAP 5/325 TAB PO PRN (15:43)
[2016-12-22] MEDS: FERROUS SULFATE 325 MG TAB PO SCH (21:32)
[2016-12-22] MEDS: FAMOTIDINE 20 MG TAB PO SCH (21:33)
[2016-12-23 05:05] LABS: HEMOGLOBIN 9.5 g/dL (13.7-17.5)
[2016-12-23 08:37] VITALS: RESP 18
--- NOTE | 2016-12-23 08:45 | SOAPPROG ---
SOAP Progress Note Assessment/Plan: Assessment: 41yo male s/p laparotomy, lysis of adhesions, possibly from previous diverticulitis episode. Microcytic anemia. Tolerating regular diet, ambulating, pain controlled, passing small amount of gas, no BM yet PE awake alert comfortable Abdomen midline incision clean/dry, abdomen very soft to palpation Plan: discussed importance of GI follow up continue regular diet possible D/C later today (if tolerates regular diet and ok with medicine) will return around 1300 to see patient again and write scripts for [place]/iron 12/22/16 12:29 12/23/16 08:44 Objective: Vital Signs Temp Pulse Resp BP Pulse Ox 36.9 C 71 18 146/104 H 95 12/23/16 08:00 12/23/16 08:00 12/23/16 08:00 12/23/16 08:00 12/23/16 08:00 Laboratory Results 12/23/16 04:10 12/20/16 08:55 12/22/16 12/23/16 12/24/16 05:59 05:59 05:59 Intake Total 2148 1356 Output Total 4 Balance 2148 1352 ICD10 Worksheet Patient Problems: Problems Problem Status Onset Small bowel obstruction Acute
[2016-12-23] MEDS: FERROUS SULFATE 325 MG TAB PO SCH (09:46)
[2016-12-23] MEDS: FAMOTIDINE 20 MG TAB PO SCH (09:46)
[2016-12-23] MEDS: SODIUM FERRIC GLUCONAT/SUCROSE 125 MG in NS 100 ML IV SCH (09:47)
[2016-12-23 11:53] VITALS: BP 142/98; PULSE 70; TEMP 98.8; O2SAT 94
--- NOTE | 2016-12-23 13:23 | HOSPPROG ---
Hospitalist Progress Note Assessment/Plan: 41-year-old male new to my care today POD #3, MANOLO -iron deficiency anemia: s/p iv iron yesterday - Will need outpatient GI followup which I carefully explained to the patient and understands the importance of further outpatient anemia workup -start oral iron supplementation -ETOH abuse of 6-8 beers per day -recommended etoh cessation ok to dc home with close outpatient followup for anemia Subjective: feeling well. +flatus no abd pain. denies history of gi bleeding ( no melena/hematochezia/hematemsis) Objective: Vital Signs Temp Pulse Resp BP Pulse Ox 37.1 C 70 18 142/98 H 94 12/23/16 11:53 12/23/16 11:53 12/23/16 11:53 12/23/16 11:53 12/23/16 11:53 Laboratory Results 12/23/16 04:10 12/20/16 08:55 12/22/16 12/23/16 12/24/16 05:59 05:59 05:59 Intake Total 2148 1356 Output Total 4 Balance 2148 1352 - Physical Exam Constitutional: no apparent distress, appears nourished, not in pain Ears, Nose, Mouth, Throat: moist mucous membranes, hearing normal, ears appear normal, no oral mucosal ulcers Cardiovascular: regular rate and rhythym, no murmur, rub, or gallop Respiratory: no respiratory distress, no rales or rhonchi, clear to auscultation Gastrointestinal: normoactive bowel sounds, soft, non-tender abdomen, no palpable masses, No guarding, No rebound ICD10 Worksheet Patient Problems: Problems Problem Status Onset Small bowel obstruction Acute
--- NOTE | 2016-12-24 16:44 | GDS ---
[f rep st] DISCHARGE SUMMARY REASON FOR ADMISSION: Small-bowel obstruction. OTHER PERTINENT DIAGNOSES: Iron deficiency anemia, history of increased alcohol consumption. HOSPITAL COURSE: Patient is a very pleasant 41-year-old male who came to the emergency department c omplaining of abdominal pain for approximately [address] scan demonstrated a high-grade small-rashel wel obstruction. The patient underwent surgery with Dr. Martinez on 12/20/2016, laparoscopy and laparo satnam with lysis of adhesions. A single fibrous band, probably related to previous diverticula, was found in the left lower quadrant. Interesting to note, that patient had no history of abdominal sabrina geries, and patient had no known diverticulitis infections. He never had pain in that area of his a bdomen. The patient was also cared for by the Internal Medicine team, who recommended a followup fo r his acute anemia, microcytic and hypochromic. He was given iron supplementation during his hospit al course stay. The patient was discharged with instructions to follow up with our office in approximately 7-10 days . [facility] will follow up with [facility], and he is given a referral by Dr. Cronin of Internal Medicine. He was discharged with [place], #30, and ferrous sulfate 325 mg twice daily. /[id number]/MODL
== END 2016-12-23 16:16 | disposition home or self-care (01) | DRG 336 ==
LOC: F3E 07:48
PROVIDERS: ADMIT Surgery; ATTEND Surgery
DX: K56.60 Unspecified intestinal obstruction (principal); D50.9 Iron deficiency anemia, unspecified; Z53.31 Laparoscopic surgical procedure converted to open procedure; E87.1 Hypo-osmolality and hyponatremia; E87.6 Hypokalemia; F10.10 Alcohol abuse, uncomplicated; I10 Essential (primary) hypertension
CPT/HCPCS: 96374; J1100; J1170; J1335; J1885; J2060; J2270; J2405; J2704; J2916; J3411; J3475; J3490; Q9967